=== PATIENT | male | born 1955 | race Caucasian/White ===

== ENCOUNTER 2016-09-27 13:43 | Inpatient (IN) | payer BC ==
--- NOTE | ~2016-09-27 | HP ---
History And Physical [address] [place]. [address] NAME: LE WELLS : 57 STATUS : ADM IN [facility]#: [id number] AGE: 61 ADM/REG DATE : 09/27/16 MR#: [id number] REPORT SERV DATE: 09/27/16 DICTATED BY: DEMETRIS DURAND DATE: 09/27/16 REPORT STATUS : Draft TRANSCRIBED BY: MODTyron DATE: 09/27/16 DATE OF ADMISSION: 09/27/2016 PRESENTING COMPLAINTS: Mr. Wells is a 61-year-old white male patient who is presenting himself to the ER with increasing shortness of breath for the last three days, slight fever for the last three days, increasing cough with shortness of breath also for the last three to four days. The patient describes his cough as productive with yellowish sputum. The patient also states that his legs have been swelling also for the last three to four days now. HISTORY OF PRESENTING COMPLAINT: This is a patient with known COPD, on oxygen at home at 2 L/minute per nasal cannula. He is also a patient with known CHF and cardiomyopathy, status post defibrillator placement in the left side of the chest wall. At the present time, the patient denies any chest pain. He states that he does have a headache, which is light headache for the last few days also. But there is no neck stiffness. There is no blurry vision. There is no trouble swallowing. He has been nauseated a little bit, and he states that in the emergency room, he had an episode of vomiting, but there has been no definitive vomiting at home. He denies any abdominal pain. He does state that he has had a few loose bowel movements for the last few days also. There is no blood in stool. There is no dysuria or hematuria. There is no pain any place else in the body. There is no swelling of any joints or pain in any other joints. REVIEW OF SYSTEMS: As above. PAST MEDICAL HISTORY: Significant for: 1. COPD. 2. Chronic hypoxic respiratory failure. The patient is oxygen dependent with oxygen per nasal cannula at 2 L/minute. 3. History of bronchiectasis. 4. History of hemoptysis, which is not a problem at this time during this admission. 5. History of left lung cavity. 6. Coronary artery disease, status post CABG and status post AICD placement. 7. Ischemic cardiomyopathy. 8. Chronic systolic and diastolic heart failure. 9. Ongoing tobacco abuse. FAMILY HISTORY: Noncontributory to the current problem. SOCIAL HISTORY: The patient smokes about half a pack a day. He denies any significant alcohol use. He denies any illegal drug use. He states that currently he lives with his daughter who takes care of him. He states that he is pretty functional at home and is able to get around slowly even though he is pretty much homebound. ALLERGIES: THE PATIENT HAS NO KNOWN DRUG ALLERGIES. History And Physical [address] [place]. [address] NAME: LE WELLS : 57 STATUS : ADM IN [facility]#: [id number] AGE: 61 ADM/REG DATE : 09/27/16 MR#: [id number] REPORT SERV DATE: 09/27/16 DICTATED BY: DEMETRIS DURAND DATE: 09/27/16 REPORT STATUS : Draft TRANSCRIBED BY: KEVIN DATE: 09/27/16 HOME MEDICATIONS: His home medications include the following: Zocor 40 mg once a day, Lasix 20 mg once a day p.r.n. for swelling, Zantac 150 mg p.o. b.i.d., Megace 40 mg/mL of suspension every day, he takes 1 mL p.o. with meals, Spiriva inhaler as directed, Coreg 6.25 mg p.o. b.i.d., Proventil inhaler one to two puffs every four hours p.r.n., albuterol nebulizer p.r.n., digoxin 0.125 mg p.o. daily, lisinopril 10 mg p.o. daily, nitroglycerin 0.4 mg sublingually p.r.n. for chest pain, aspirin 81 mg p.o. daily. PHYSICAL EXAMINATION: GENERAL: The patient is alert, oriented, and appears to be in distress when he is breathing. He is using his abdominal muscles to breathe. However, he is able to finish a sentence without getting short of breath and is able to give me appropriate history. His skin and mucous membranes appear moist. VITAL SIGNS: Showed that his blood pressure is 113/62, pulse is 94 per minute and in sinus rhythm, O2 sats 99% on 2 L of oxygen per nasal cannula. Temperature, the patient has mild fever at 99.6. His respirations are 16 per minute. HEENT: Unremarkable. The patient is a thin frail male patient in somewhat respiratory distress. NECK: There is positive JVD. There is no thyromegaly or lymphadenopathy. CARDIOVASCULAR SYSTEM: S1, S2 appreciated. Sinus tachycardia noted. No murmurs, rubs, or gallops noted at this time. Left chest wall AICD noted in place. RESPIRATORY SYSTEM: The patient has slightly labored breathing with prolonged expiration, mildly tachypneic. LUNGS: Examination of the lungs reveals diffuse rhonchi. I could not definitively appreciate any rales, but he has diffuse rhonchi and it is hard to distinguish between the two adventitious sounds. ABDOMEN: Scaphoid. Nondistended. Bowel sounds are appreciated. No hepatosplenomegaly or organomegaly noted. EXTREMITIES: There is 2+ pedal edema in both lower extremities. Pedal pulses are diminished, but felt in both lower extremities, DP/PT. NEUROLOGICAL: GROSSLY no deficits. MUSCULOSKELETAL: No acute swelling or redness or pain in any of the major joints. PSYCHIATRIC: Appears to be in with normal affect. LABORATORIES: On this patient include CBC that shows WBC count slightly elevated at 11.4, hemoglobin 13.5, hematocrit 42, platelet count of 291, INR is 1.1. Electrolytes show normal electrolytes, normal BUN and creatinine. Troponin I is normal at 0.03. BNP is elevated at 587. Digoxin levels are at a 0.9 which is normal. Chest x-ray portable shows that the patient does have underlying COPD, but no definitive infiltrates. No pneumothorax. No other masses, but there is scarring noted in the left lung and some left-sided volume loss, because of probably previous surgery to the left lung. His arterial blood gases show a pH of 7.4, pCO2 of 48, pO2 of 96, O2 saturation 97.9% on 30% oxygen. ASSESSMENT: 1. Acute on chronic hypoxic hypercapnic respiratory failure, give supportive treatment with oxygen. History And Physical [address] [address] NAME: LE WELLS : 57 STATUS : ADM IN [facility]#: [id number] AGE: 61 ADM/REG DATE : 09/27/16 MR#: [id number] REPORT SERV DATE: 09/27/16 DICTATED BY: DEMETRIS DURAND DATE: 09/27/16 REPORT STATUS : Draft TRANSCRIBED BY: KEVIN DATE: 09/27/16 2. Acute exacerbation of chronic obstructive pulmonary disease. 3. Acute exacerbation of systolic and diastolic heart failure. 4. Ischemic cardiomyopathy. 5. Coronary artery disease, status post CABG and status post AICD implantation on the left side of the chest. 6. Ongoing tobacco abuse. PLAN: 1. My plan is to admit this patient. Give supportive and symptomatic care. Continue supplemental oxygen. We will start him on IV Rocephin, IV azithromycin and give him Solu-Medrol 80 mg IV q.8 hours along with DuoNeb q.4 hours p.r.n. 2. We will also check a procalcitonin level and the lactate level to assess his infection level even though he complains of yellowish sputum. 3. For the heart failure, for 24 hours, we will give him IV Bumex 2 mg q.8 hours and then back it down to 1 mg IV q.8 hours. We will also go ahead and get a 2D echocardiogram to assess his cardiac function as it has not been done recently. 4. We will continue most of his home medications including digoxin. We will also continue his Zocor. We will also continue his Coreg at this time. As mentioned above, the patient will be admitted to a cardiac telemetry bed because of his cardiac status and AICD placement status and will continue to give him symptomatic and supportive care as above, and I will follow the patient. MUNIRA/KEVIN Demetris Durand M.D. / [id number] CC: Demetris Durand M.D.
--- NOTE | ~2016-09-27 | DS ---
Discharge Summary [facility] [address] [place]. [address] NAME: LE HOPKINS : 57 STATUS : ADM IN PAT#: [id number] AGE: 61 ADM/REG DATE : 09/27/16 MR#: [id number] REPORT SERV DATE: 10/02/16 DICTATED BY: JERI CABRERA DATE: 10/02/16 REPORT STATUS : Draft TRANSCRIBED BY: MODL DATE: 10/02/16 ADMISSION DATE: 09/27/2016 DISCHARGE DATE: 10/02/2016 DISCHARGE DIAGNOSES: 1. Acute exacerbation of oxygen-dependent chronic obstructive pulmonary disease in an active smoker. 2. Acute on chronic systolic congestive heart failure with left ventricular ejection fraction 20%. 3. Acute kidney injury with prerenal azotemia. 4. Previous coronary bypass. 5. History of atrial fibrillation treated with ablation and pacemaker. 6. Automatic implantable cardioverter-defibrillator for low ejection fraction heart failure. 7. Hypokalemia due to Bumex, diuresis. 8. Chronic insomnia. 9. Chronic left upper lobe cavitary lesion with negative previous bronchoscopies. HISTORY: This patient has known advanced COPD and unfortunately continues to smoke. He is motivated to try to discontinue smoking. He has had about three days of increased cough, increased sputum production of thick yellow sputum. Because of this, he came to the emergency room at [facility] and was referred to our team for inpatient care. HOSPITAL COURSE: Imaging in the emergency room revealed on chest x-ray extensive COPD changes with chronic scarring in the left upper lung, evidence of previous sternotomy and he has his AICD in place. His white blood count was elevated at 11.4 on admission, by discharge it was improved down to 8.1. He has mild anemia with hemoglobin approximately 11.7. The patient's procalcitonin was 0.15. His blood cultures x2, no growth. Sputum grew out Serratia marcescens which is what he has grown out of his left upper lobe cavitary area in the past. The patient was initially given antibiotics including Rocephin and azithromycin along with IV steroids, Solu-Medrol. As he improved, his steroids were de- escalated down to oral prednisone and as he remained afebrile and his procalcitonin was normal and his blood cultures normal, and he was improving he was taken off antibiotics on 09/30/2016. The patient did apparently have some initial diarrhea, but thereafter had just soft mushy stools and actually no further diarrhea. The patient has history of coronary artery disease with previous bypass. The patient had an echocardiogram on 09/29/2016 showing left atrial size normal at 2.7 cm, global left ventricular systolic dysfunction with an ejection fraction of 15%, and overall the findings were similar to his previous echo on 02/15/2013. He was given some additional diuretics and his mild peripheral edema improved. He is on medical therapy for his congestive heart failure including aspirin, beta suzanne, SHELLEY inhibitor, and digoxin. His digoxin level was 0.9 on 09/27/2016. Congestive Heart Failure Education Team met with him and we are also Discharge Summary [address] [address] NAME: LE HOPKINS : 57 STATUS : ADM IN PAT#: [id number] AGE: 61 ADM/REG DATE : 09/27/16 MR#: [id number] REPORT SERV DATE: 10/02/16 DICTATED BY: JERI CABRERA DATE: 10/02/16 REPORT STATUS : Draft TRANSCRIBED BY: KEVIN DATE: 10/02/16 recommending a followup with his primary comic book artist, Dr. Woody Ramirez at [facility] within the next three to four weeks. The patient has chronic severe insomnia, it has been going on for many years, so I told him we did not want to start him on something habit-forming. Melatonin did not help very much; trazodone helped a lot, so we are going to continue that. I told him for bedtime he should stop taking Benadryl because it may dry his secretions and make his pulmonary status worse. The patient has had some transient hypokalemia with his diuretic, but that has been treated and improved. At the time of discharge, he is ambulatory, feels like he is close to his baseline. He has a daughter, Gil Elias, who I spoke to by phone and who is very supportive and helping care for him. His followup should be with his PCP, Dr. Scarlet Barragan, within the next week and with comic book artist, Dr. Woody Ramirez at [facility] in three to four weeks, and with Pulmonary, Dr. Vazquez, within the next one or two months. DISCHARGE MEDICATIONS: 1. Aspirin 81 mg daily. 2. Coreg 6.25 mg twice a day. 3. Digoxin 0.125 mg daily. 4. Mucinex [id number] 1200 mg b.i.d. 5. Megace oral suspension 40 mg, he takes only a 1 mL dose with meals at home. This is a chronic medicine. 6. Florastor capsule twice a day for three weeks to reduce the chance of C. diff in the future after he has been on his antibiotics. 7. Zocor 40 mg at bedtime. 8. Spiriva one capsule inhaled daily. 9. Proventil he has hand-held and nebulized to use p.r.n. at home. 10.Nitroglycerin sublingual p.r.n. chest pain. 11.Trazodone 50 mg p.o. q.h.s. p.r.n. insomnia #30 with one refill prescribed. 12.Lasix 20 mg daily p.r.n. leg edema. 13.Zantac 150 mg twice a day. 14.Lisinopril, he takes a half of a 10 mg tablet once a day. We talked on several occasions about the importance of discontinuing all tobacco, he seems highly motivated to do that. He states he has done well here without cigarettes and has not really needed the nicotine replacement protocol. I spent 31 minutes with the patient today and with discharge planning. LIANA/KEVIN Discharge Summary [address] [address] NAME: LE HOPKINS : 57 STATUS : ADM IN PAT#: [id number] AGE: 61 ADM/REG DATE : 09/27/16 MR#: [id number] REPORT SERV DATE: 10/02/16 DICTATED BY: JERI CABRERA DATE: 10/02/16 REPORT STATUS : Draft TRANSCRIBED BY: KEVIN DATE: 10/02/16 Jeri Cabrera M.D. / [id number] CC: Jagruti Eason N.P. Krishnendu adra, M.D. Woody James, MD
[2016-09-27 12:28] LABS: BASOPHILS 0.1 %; BASOPHILS ABSOLUTE 0.01 10/3/uL (0.0-0.16); EOSINOPHILS 0.9 %; HEMOGLOBIN 13.5 g/dL (13.6-17.8); IMMATURE GRANULOCYTES 0.4 %; IMMATURE GRANULOCYTES ABSOLUTE 0.05 10/3/uL (0.0-0.11); LYMPHOCYTES 10.4 %; LYMPHOCYTES ABSOLUTE 1.18 10/3/uL (0.67-4.30); MEAN CORPUS HGB CONC 32.1 g/dL (32.0-36.0); MEAN CORPUSCULAR HEMOGLOB 27.9 pg (26.0-34.0); MEAN CORPUSCULAR VOLUME 86.8 fL (80-100); MEAN PLATELET VOLUME 8.9 fL (9.2-13.0); MONOCYTES 6.4 %; MONOCYTES ABSOLUTE 0.73 10/3/uL (0.21-1.20); NEUTROPHILS 81.8 %; NEUTROPHILS ABSOLUTE 9.29 10/3/uL (2.02-8.40); PLATELET COUNT 291 10/3/uL (150-400); RBC DISTRIBUTION WIDTH 14.8 % (12.0-16.0); RED CELL COUNT 4.84 10/6/uL (4.7-6.1)
[2016-09-27 12:29] LABS: ER CBC TAT 0 Hrs 05 Mins; MANUAL DIFF NO %; WHITE BLOOD CELLS 11.4 10/3/uL (4.5-10.5)
[2016-09-27 12:38] LABS: INTERNATIONAL NORMAL RATI 1.1 UNITS (-); PARTIAL THROMBO TIME 31.5 SEC (22.5-37.2); PROTIME (NOT ORD) 13.8 SEC (12.0-14.5)
[2016-09-27 12:46] LABS: BUN (BLOOD UREA NITROGEN) 13 MG/DL (6-23); CHEST PAIN PROFILE TAT 0 Hrs 22 Mins; CHLORIDE, SERUM 98 MMOL/L (96-112); CO2 (CARBON DIOXIDE) 34 MMOL/L (24-34); CREATININE 0.96 MG/DL (0.70-1.30); GFR AFRICAN AMERICAN 99 ML/MIN (>=60); GFR NON AFRICAN AMERICAN 86 ML/MIN (>=60); POTASSIUM, SERUM 4.1 MMOL/L (3.5-5.3); SODIUM, SERUM 138 MMOL/L (135-148); TROPONIN I 0.03 NG/ML (<0.05)
[2016-09-27 12:47] LABS: GLUCOSE, SERUM 85 MG/DL (60-99)
[2016-09-27 12:57] LABS: ALLENS TEST Pos; BE (BASE EXCESS) 4.4 MEQ/L (0 +/- 2.5); CARBOXYHEMOGLOBIN 1.5 % (0-3); HCO3 (ACTUAL BICARBONATE) 29.9 MEQ/L (23-27); HEMOBLOGIN CONTENT 14.4 G/DL (14-18); INSTRUMENT SERIAL # 8087; METHEMOGLOBIN 0.4 % (0-3); O2 CONTENT 19.5 VOL% (18-24); OPERATOR ID 14335; PCO2 (CO2 TENSION) 48 MMHG (35-45); PO2 (O2 TENSION) 96 MMHG (79-93); SAMPLE Arterial; pH 7.41 (7.37-7.43)
[~2016-09-27 13:43] MED LIST: *UNABLE1; ABILIFY2 PO; ADVAIR100 INH; ALAVERT10 MG PO; ALBUTEROL0.083 % INH; ALEVE SINUS PO; ALEVE220 MG PO; ASA5GR PO; ASAB PO; ASCRIPTIN PO; ATROVENTUD INH; BEN25 PO; BENADRYL 50 MG50 MG PO; BETAP120 PO; BETAPACE80 PO; COREG25 PO; COREG6 PO; COREGCR10 PO; DIGITEK0.25 MG PO; DIURETIC; FISH-EPA1000 MG PO; FLEX PO; FORADIL INH; KLOR-CON M2020 MEQ PO; L20 PO; LAN125 PO; LAN25 PO; LEVAQUIN750 MG PO; LORTAB 5 PO; LUNESTA3 MG PO; MEDROLPAK4 PO; MEGACEUDL PO; METHOC500B PO; MEVACOR PO; MOBIC15 MG PO; MONODOX100 MG PO; NATURAL POTASSIUM PO; NEUR300 PO; NICODERM C21 MG/241 TOP; NITROSTAT0.4 MG SL; P20 PO; PR25 PO; PRIN10 PO; PRIN20 PO; PROAIR HFA INH; PROVENTSOL INH; PROVHFA INH; PROVHFA PO; PULMICORT180 MCG INH; RANITIDINE300 MG PO; RELA5 PO; SPIRIVA INH; SPIRO25 PO; STERAPDS12; SYMBICORT 160/41 INH INH; VENTOLIN HFA INH; VISION FORMULA PO; VITAMIN D1000 UNI1 PO; VITAMIN D31000 UNIT PO; X25 PO; ZANTAC 150 PO; ZOCOR40 PO
[2016-09-27 16:52] LABS: WBC (NOT ORDERED) (RFLEX) 0 (0-5)
[2016-09-27 17:20] LABS: ASCORBIC ACID (UR NOT ORDER) NEG (NEG); BILIRUBIN, URINE NEGATIVE (NEG); KETONE, URINE NEGATIVE (NEG); LEUKOCYTE ESTERASE(NOT OR NEG (NEG)
[2016-09-28 03:11] LABS: ALLENS TEST Pos; BE (BASE EXCESS) 6.9 MEQ/L (0 +/- 2.5); CARBOXYHEMOGLOBIN 0.4 % (0-3); DEVICE NC; HCO3 (ACTUAL BICARBONATE) 30.5 MEQ/L (23-27); HEMOBLOGIN CONTENT 15.4 G/DL (14-18); INSTRUMENT SERIAL # 8083; METHEMOGLOBIN 0.1 % (0-3); O2 CONTENT 20.8 VOL% (18-24); OPERATOR ID 35190; PCO2 (CO2 TENSION) 39 MMHG (35-45); PO2 (O2 TENSION) 82 MMHG (79-93); SAMPLE Arterial; pH 7.51 (7.37-7.43)
[2016-09-28 05:41] LABS: BASOPHILS 0.1 %; BASOPHILS ABSOLUTE 0.01 10/3/uL (0.0-0.16); EOSINOPHILS 0 %; HEMOGLOBIN 15.2 g/dL (13.6-17.8); IMMATURE GRANULOCYTES 0.4 %; IMMATURE GRANULOCYTES ABSOLUTE 0.05 10/3/uL (0.0-0.11); LYMPHOCYTES 4.2 %; LYMPHOCYTES ABSOLUTE 0.48 10/3/uL (0.67-4.30); MEAN CORPUSCULAR HEMOGLOB 28.3 pg (26.0-34.0); MEAN CORPUSCULAR VOLUME 85.5 fL (80-100); MEAN PLATELET VOLUME 9.2 fL (9.2-13.0); MONOCYTES 4.1 %; MONOCYTES ABSOLUTE 0.47 10/3/uL (0.21-1.20); NEUTROPHILS 91.2 %; NEUTROPHILS ABSOLUTE 10.44 10/3/uL (2.02-8.40); PLATELET COUNT 314 10/3/uL (150-400); RED CELL COUNT 5.38 10/6/uL (4.7-6.1); WHITE BLOOD CELLS 11.5 10/3/uL (4.5-10.5)
[2016-09-28 05:43] LABS: MANUAL DIFF NO %
[2016-09-28 05:51] LABS: CALCIUM, SERUM 9.2 MG/DL (8.5-10.4); CHLORIDE, SERUM 95 MMOL/L (96-112); CO2 (CARBON DIOXIDE) 33 MMOL/L (24-34); POTASSIUM, SERUM 3.9 MMOL/L (3.5-5.3); SODIUM, SERUM 138 MMOL/L (135-148)
[2016-09-28 05:52] LABS: BUN (BLOOD UREA NITROGEN) 25 MG/DL (6-23); CREATININE 1.46 MG/DL (0.70-1.30); GFR AFRICAN AMERICAN 60 ML/MIN (>=60); GFR NON AFRICAN AMERICAN 52 ML/MIN (>=60); GLUCOSE, SERUM 118 MG/DL (60-99)
[2016-09-29 06:09] LABS: BASOPHILS 0 %; EOSINOPHILS 0 %; HEMOGLOBIN 13.2 g/dL (13.6-17.8); IMMATURE GRANULOCYTES 0.3 %; IMMATURE GRANULOCYTES ABSOLUTE 0.04 10/3/uL (0.0-0.11); LYMPHOCYTES 4.8 %; LYMPHOCYTES ABSOLUTE 0.59 10/3/uL (0.67-4.30); MANUAL DIFF NO %; MEAN CORPUS HGB CONC 33.8 g/dL (32.0-36.0); MEAN CORPUSCULAR HEMOGLOB 29.1 pg (26.0-34.0); MEAN CORPUSCULAR VOLUME 85.9 fL (80-100); MEAN PLATELET VOLUME 9.1 fL (9.2-13.0); MONOCYTES 4.7 %; MONOCYTES ABSOLUTE 0.58 10/3/uL (0.21-1.20); NEUTROPHILS 90.2 %; NEUTROPHILS ABSOLUTE 11.15 10/3/uL (2.02-8.40); PLATELET COUNT 281 10/3/uL (150-400); RBC DISTRIBUTION WIDTH 15.1 % (12.0-16.0); RED CELL COUNT 4.54 10/6/uL (4.7-6.1); WHITE BLOOD CELLS 12.4 10/3/uL (4.5-10.5)
[2016-09-29 06:20] LABS: CALCIUM, SERUM 8.6 MG/DL (8.5-10.4); CHLORIDE, SERUM 98 MMOL/L (96-112); CO2 (CARBON DIOXIDE) 33 MMOL/L (24-34); CREATININE 1.26 MG/DL (0.70-1.30); GFR AFRICAN AMERICAN 71 ML/MIN (>=60); GFR NON AFRICAN AMERICAN 62 ML/MIN (>=60); GLUCOSE, SERUM 109 MG/DL (60-99); POTASSIUM, SERUM 3.3 MMOL/L (3.5-5.3); SODIUM, SERUM 140 MMOL/L (135-148)
[2016-09-29 06:23] LABS: BUN (BLOOD UREA NITROGEN) 42 MG/DL (6-23)
[2016-09-29 10:14] LABS: ALBUMIN 2.8 G/DL (3.5-5.0); ALKALINE PHOSPHATASE 69 U/L (45-117); DIRECT BILIRUBIN 0.1 MG/DL (0.0-0.4); INDIRECT BILIRUBIN(NOT ORDER) 0.2 MG/DL (0.1-0.9); SGOT(AST) 29 U/L (5-40); SGPT(ALT) 34 U/L (5-65); TOTAL BILIRUBIN 0.3 MG/DL (0-1.2); TOTAL PROTEIN 6.2 G/DL (6.0-8.5); ULTRASENSITIVE TSH 0.455 MCIU/ML (0.358-3.740)
[2016-09-29 10:36] LABS: PROCALCITONIN 0.15 ng/mL (<0.5)
[2016-09-30 05:27] LABS: BASOPHILS 0 %; EOSINOPHILS 0 %; HEMOGLOBIN 11.5 g/dL (13.6-17.8); IMMATURE GRANULOCYTES 0.2 %; IMMATURE GRANULOCYTES ABSOLUTE 0.02 10/3/uL (0.0-0.11); LYMPHOCYTES 6.5 %; LYMPHOCYTES ABSOLUTE 0.67 10/3/uL (0.67-4.30); MEAN CORPUS HGB CONC 33.2 g/dL (32.0-36.0); MEAN CORPUSCULAR HEMOGLOB 28.8 pg (26.0-34.0); MEAN CORPUSCULAR VOLUME 86.7 fL (80-100); MEAN PLATELET VOLUME 8.7 fL (9.2-13.0); MONOCYTES 6.1 %; MONOCYTES ABSOLUTE 0.63 10/3/uL (0.21-1.20); NEUTROPHILS 87.2 %; PLATELET COUNT 235 10/3/uL (150-400); RED CELL COUNT 3.99 10/6/uL (4.7-6.1); WHITE BLOOD CELLS 10.3 10/3/uL (4.5-10.5)
[2016-09-30 05:30] LABS: HEMATOCRIT 34.6 % (40.0-51.0); MANUAL DIFF NO %
[2016-09-30 05:42] LABS: CALCIUM, SERUM 8.1 MG/DL (8.5-10.4); CHLORIDE, SERUM 99 MMOL/L (96-112); CO2 (CARBON DIOXIDE) 34 MMOL/L (24-34); GFR AFRICAN AMERICAN 94 ML/MIN (>=60); GFR NON AFRICAN AMERICAN 81 ML/MIN (>=60); GLUCOSE, SERUM 124 MG/DL (60-99); POTASSIUM, SERUM 3.4 MMOL/L (3.5-5.3); SODIUM, SERUM 141 MMOL/L (135-148)
[2016-09-30 05:51] LABS: BUN (BLOOD UREA NITROGEN) 37 MG/DL (6-23)
[2016-10-01 06:58] LABS: BASOPHILS 0.1 %; BASOPHILS ABSOLUTE 0.01 10/3/uL (0.0-0.16); EOSINOPHILS 0.1 %; EOSINOPHILS ABSOLUTE 0.01 10/3/uL (0.0-0.53); HEMATOCRIT 35.7 % (40.0-51.0); HEMOGLOBIN 11.7 g/dL (13.6-17.8); IMMATURE GRANULOCYTES 0.4 %; IMMATURE GRANULOCYTES ABSOLUTE 0.03 10/3/uL (0.0-0.11); LYMPHOCYTES 10.7 %; LYMPHOCYTES ABSOLUTE 0.87 10/3/uL (0.67-4.30); MEAN CORPUS HGB CONC 32.8 g/dL (32.0-36.0); MEAN CORPUSCULAR HEMOGLOB 28.7 pg (26.0-34.0); MEAN CORPUSCULAR VOLUME 87.7 fL (80-100); MEAN PLATELET VOLUME 8.9 fL (9.2-13.0); MONOCYTES 10.1 %; MONOCYTES ABSOLUTE 0.82 10/3/uL (0.21-1.20); NEUTROPHILS 78.6 %; PLATELET COUNT 232 10/3/uL (150-400); RBC DISTRIBUTION WIDTH 14.6 % (12.0-16.0); RED CELL COUNT 4.07 10/6/uL (4.7-6.1); WHITE BLOOD CELLS 8.1 10/3/uL (4.5-10.5)
[2016-10-01 06:59] LABS: MANUAL DIFF NO %
[2016-10-01 07:14] LABS: BUN (BLOOD UREA NITROGEN) 25 MG/DL (6-23); CALCIUM, SERUM 8.2 MG/DL (8.5-10.4); CHLORIDE, SERUM 99 MMOL/L (96-112); CO2 (CARBON DIOXIDE) 35 MMOL/L (24-34); CREATININE 0.83 MG/DL (0.70-1.30); GFR AFRICAN AMERICAN 111 ML/MIN (>=60); GFR NON AFRICAN AMERICAN 96 ML/MIN (>=60); GLUCOSE, SERUM 88 MG/DL (60-99); POTASSIUM, SERUM 3.5 MMOL/L (3.5-5.3); SODIUM, SERUM 142 MMOL/L (135-148)
[2016-10-02] MEDS ORDERED: TRAZ50 PO (11:22)
[2016-10-02] MEDS ORDERED: MUCINEX1200 MG PO (11:23)
[2016-10-02] MEDS ORDERED: FLORASTOR250 MG PO (11:24)
== END 2016-10-02 13:25 | disposition home or self-care (01) | DRG 189 ==
LOC: ER 13:43 → 4SO 14:02 → 1SO 14:36
PROVIDERS: Emergency Medicine; Hospitalist
DX: J96.21 Acute and chronic respiratory failure with hypoxia (principal); I50.43 Acute on chronic combined systolic (congestive) and diastolic (congestive) heart failure; N17.9 Acute kidney failure, unspecified; J44.1 Chronic obstructive pulmonary disease with (acute) exacerbation; Z99.81 Dependence on supplemental oxygen; J96.22 Acute and chronic respiratory failure with hypercapnia; I11.0 Hypertensive heart disease with heart failure; E87.6 Hypokalemia; I25.5 Ischemic cardiomyopathy; D63.8 Anemia in other chronic diseases classified elsewhere; I25.10 Atherosclerotic heart disease of native coronary artery without angina pectoris; F17.210 Nicotine dependence, cigarettes, uncomplicated; R91.1 Solitary pulmonary nodule; R19.7 Diarrhea, unspecified; Z95.1 Presence of aortocoronary bypass graft; Z95.810 Presence of automatic (implantable) cardiac defibrillator; Z86.010 Personal history of colon polyps; Z79.82 Long term (current) use of aspirin; Z79.899 Other long term (current) drug therapy
CPT/HCPCS: 36600; 71010; 80048; 80076; 80162; 81001; 82805; 83605; 83735; 83880; 84145; 84443; 84484; 85025; 85610; 85730; 87040; 87070; 87077; 87186; 87205; 87449; 87804; 93005; 94640; 96365; 96375; 99285; A9270-GY; C8929; J0456; J2930; Q9957

== ENCOUNTER 2016-10-10 14:58 | Emergency (ER) | payer BC ==
[~2016-10-10 14:58] MED LIST changes: +FLORASTOR250 MG PO; +MUCINEX1200 MG PO; +TRAZ50 PO
== END 2016-10-10 15:52 | disposition expired ==
LOC: ER 14:58
DX: I46.9 Cardiac arrest, cause unspecified (principal); J44.9 Chronic obstructive pulmonary disease, unspecified; I50.9 Heart failure, unspecified; I10 Essential (primary) hypertension; Z95.1 Presence of aortocoronary bypass graft; Z98.61 Coronary angioplasty status; I48.91 Unspecified atrial fibrillation
CPT/HCPCS: 92950; 99285